=== PATIENT | female | born 1965 | race Caucasian/White ===

== ENCOUNTER 2017-08-21 05:51 | Emergency (ER) | payer OTHER ==
[~2017-08-21] VITALS: Ht 167.6 cm; Wt 46.7 kg
[2017-08-21 06:06] VITALS: BP 126/83
--- NOTE | 2017-08-21 06:10 | ED UPPER/LOWER EXTREMITY COMPL ---
History of Present Illness General Chief Complaint: Hip Injury Stated Complaint: S/P FALL WALKING DOG WEDNESDAY C/O RT HIP PAIN Source: patient Exam Limitations: no limitations Vital Signs & Intake/Output Vital Signs & Intake/Output Vital Signs Date Time Temp Pulse Resp B/P B/P Pulse O2 O2 Flow FiO2 Mean Ox Delivery Rate 08/21 0606 99.0 75 18 126/83 98 Room Air Allergies Coded Allergies: codeine (Severe, HIVES 03/24/16) Uncoded Allergies: ANESTHESIA (Severe, HIVES 03/24/16) Reconcile Medications Oxycodone HCl/Acetaminophen (Percocet 5-325 MG Tablet) 5 MG-325 MG TABLET 1 TAB PO 4XDP PRN PAIN TEN...[id number] Triage Nurses Notes Reviewed? yes Onset: Abrupt Duration: day(s): Timing: recent history Severity: moderate Pain/Injury Location: Right: Hip. Method of Injury: direct blow, fall Modifying Factors: Improves With: rest. Associated Symptoms: RIGHT HIP PAIN HPI: 52 yo woman h/o chronic pancreatitis, h/o chronic pain, presents after a fall 3 days ago. "I was walking my dog and my dog lunged... I fell forward and landed on my right hip.... it still hurts. It hurts when I walk and move it... " She notes she is able to ambulate, but with discomfort. She is otherwise well and notes no other injury. Past History Travel History Traveled to [place] past 21 day No Medical History Any Pertinent Medical History? see below for history Neurological: NONE EENT: NONE Cardiovascular: NONE Respiratory: NONE Gastrointestinal: pancreatitis Hepatic: NONE Renal: NONE Musculoskeletal: NONE Psychiatric: depression, insomnia Endocrine: NONE Blood Disorders: NONE Cancer(s): THROAT CANCER E COMMERCE MANAGER/Reproductive: NONE Surgical History Surgical History: THROAT CANCER RESECTION Psychosocial History What is your primary language Cameroonian Tobacco Use: Quit >30 days ago ETOH Use: denies use Illicit Drug Use: denies illicit drug use Family History Hx Contributory? No Review of Systems Review of Systems Constitutional: Reports: no symptoms. EENTM: Reports: no symptoms. Respiratory: Reports: no symptoms. Cardiovascular: Reports: no symptoms. Gastrointestinal/Abdominal: Reports: no symptoms. Genitourinary: Reports: no symptoms. Musculoskeletal: Reports: no symptoms. Skin: Reports: no symptoms. Neurological/Psychological: Reports: no symptoms. Hematologic/Endocrine: Reports: no symptoms. Immunological: Reports: no symptoms. All Other Systems: Reviewed and Negative Physical Exam Physical Exam General Appearance: well developed/nourished, mild distress Head: atraumatic Eyes: Bilateral: normal appearance. Ears, Nose, Throat: normal pharynx Neck: normal inspection, supple, full range of motion Cardiovascular/Respiratory: normal breath sounds Hip Right: mild-moderate diffuse musculoskeletal tenderness around right hip musculature. ROM is normal but with mild elicited pain. no deformity. Progress Differential Diagnosis: contusion, dislocation, fracture, sprain Plan of Care: Orders Procedure Date/time Status XRY-HIP 4 VIEWS UNI, RIGHT 08/21 556 Active Diagnostic Imaging: Viewed by Me: Radiology Read. Discussed w/RAD: Radiology Read. Radiology Impression: PATIENT: CHAPARRO JOVEL PRESENT AGE: 52 PATIENT ACCOUNT NO: [id number] : 65 LOCATION: [facility] ORDERING PHYSICIAN: Dale Carey MD SERVICE DATE: 08/21/17 EXAM TYPE: RAD - XRY-HIP 4 VIEWS UNI, RIGHT EXAMINATION: XR RIGHT HIP CLINICAL INFORMATION: Right hip pain COMPARISON: None TECHNIQUE: 2 views of the right hip. FINDINGS: Alignment across the hip is anatomic. There is mild degenerative change along the acetabulum. No acute fracture is seen. Included portions of the bony pelvis appear intact. IMPRESSION: No acute findings identified. Mild degenerative change of the right hip. DICTATED BY: Akhil Ascencio MD DATE/TIME DICTATED:650 [employer] FA[employer] WORKER:YANN DATE/TIME TRANSCRIBED:08/21/17650 CONFIDENTIAL, DO NOT COPY WITHOUT APPROPRIATE AUTHORIZATION. <Electronically signed in Other Vendor System> SIGNED BY: Akhil Ascencio MD 08/21/17 0656 Departure Departure Disposition: HOME OR SELF CARE Condition: Stable Clinical Impression Primary Impression: Right hip pain Referrals: Juan J Silva APRN (PCP/Family) Departure Forms: Customer Survey General Discharge Information Prescriptions: Current Visit Scripts Oxycodone HCl/Acetaminophen (Percocet 5-325 MG Tablet) 1 TAB PO 4XDP PRN PAIN #10 TAB TEN...[id number] Comments 08/21/17, 19:14.... NEGATIVE XRAY... DISCUSSED SUPPORTIVE CARE, PMD FOLLOW UP, PT REFERRAL... CLOSE FOLLOW UP ADVISED.
--- NOTE | 2017-08-21 06:56 | RADIOLOGY REPORT ---
EXAMINATION: XR RIGHT HIP CLINICAL INFORMATION: Right hip pain COMPARISON: None TECHNIQUE: 2 views of the right hip. FINDINGS: Alignment across the hip is anatomic. There is mild degenerative change along the acetabulum. No acute fracture is seen. Included portions of the bony pelvis appear intact. IMPRESSION: No acute findings identified. Mild degenerative change of the right hip.
[2017-08-21] MEDS ORDERED: PERCOCET 5-3251 EACH PO (07:00)
== END 2017-08-21 07:04 ==
LOC: ERH 05:51
DX: M25.551 Pain in right hip (principal)